=== PATIENT | male | born 1945 | race Caucasian/White ===

== ENCOUNTER 2020-07-24 17:18 | Inpatient (IN) | payer MEDICARE, OTHER ==
[2020-07-24] MEDS ORDERED: Amiodarone HCl 150 MG in Dextrose 5% in Water 100 ML IVPB SCH (18:00)
[2020-07-24] MEDS ORDERED: Amiodarone HCl 450 MG in Dextrose 5% in Water 250 ML IVPB SCH (18:00)
--- NOTE | 2020-07-24 18:23 | RAD ---
PORTABLE CHEST: 07/24/20 HISTORY: Abnormal rhythm noted on Holter monitor. Heart size and mediastinum are within normal limits. There is some type of an electronic device that overlies the aortic arch region. I am not certain the exact position of this on this single view. The lungs themselves are clear of any infiltrative process. IMPRESSION: Electronic device overlying the region of the aortic notch. I am not certain of the exact position of this on a single projection. POS: OFF
[2020-07-24 18:24] LABS: #Basophils 0.1 thou/uL (0.0-0.2); #Eosinphils 0.2 thou/uL (0.0-0.7); #Lymphocytes 1.8 thou/uL (1.20-3.40); #Monocytes 0.6 thou/uL (0.11-0.59); #Neutrophils 3.9 thou/uL (1.40-6.50); %Basophils 1.3 % (0.0-1.0); %Eosinophils 2.8 % (0.0-10.0); %Lymphocytes 27.6 % (21.0-51.0); %Monocytes 8.6 % (0.0-10.0); %Neutrophils 59.8 % (42.0-75.0); Hemoglobin 14.3 g/dL (14.0-18.0); Mean Corpuscular HGB CONC 34.7 g/dL (32.0-36.0); Mean Corpuscular Hemoglobin 33.2 pg (27.0-31.0); Mean Corpuscular Volume 95.7 fL (78.0-98.0); Platelet Count 242 thou/uL (130-400); RBC Distribution Width 11.9 % (11.5-14.5); White Blood Cell (WBC) Count 6.6 thou/uL (4.8-10.8)
--- NOTE | 2020-07-24 18:25 | PDOC.FPRHP ---
- History of Present Illness Chief Complaint: Abnormal heart rhythm History of Present Illness: Patient is a 75 yo M who presents to the ED 2/2 abnormal heart rhythm. Patient was called by cardiology-Dr. Landon-to come to ED after Holter monitor was concerning for Torsades or Aflutter with 2-1 block. Late this morning had an episode of lightheadedness and palpitations and had to lie down and it resolved within about 30min. These episodes happen approx 1x per month for last several years and are typically resolved within 30 minutes after lying down. They haven't been happening more frequently or lasting longer but went and had heart evaluated due to wanting to pursue knee surgery. At that time he had Holter mon itor placed. He denies chest pain or syncope. He had one episode of syncope "years ago" at home with a similar episode but has never had it again. Per Dr. Landon, patient will go for cath tomorrow. Sees music copyist for diabetes, no PCP. ED Course: Patient was started on amiodarone drip per Dr. Landon. QTc on EKG is 452. - Allergies/Adverse Reactions Allergies Allergy/AdvReac Type Severity Reaction Status Date / Time No Allergy Information Allergy Unverified 07/24/20 17:52 Available - History PMHx: Type 1 DM on insulin dx'ed at age 52- had identical twin brother diagnosed at age 8, HLD, hypothyroidism, neuropathy PSHx: Dupuytren's contracture surgery FHx: Twin brother with type 1 DM, brother of cancer Social: Drinks daily 2-3 rum and cokes 1-2 shots each. Former smoker 40yrs 1ppd, smokes occasionally. 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 denies: chest pain Gastrointestinal: denies: nausea, vomiting, abdominal pain Genitourinary: denies: dysuria, polyuria Skin: denies: rashes, lesions Musculoskeletal: denies: pain, swelling Neurological: denies: syncope, weakness Psychological: denies: anxiety, depression - Vital signs BP: 130/96, Pulse: 91, Resp: 18, Temp: 98.2 (Oral), Pain: 0, O2 sat: 97 on (Room Air), Time: 07/24/2020 17:19. Wt 102 kg - Physical Exam Constitutional: NAD, awake, alert and oriented, well developed HEENT: normocephalic and atraumatic, conjunctiva clear, no scleral icterus, grossly normal hearing, oropharynx clear Neck: supple, trachea midline Heart: RRR, no murmurs/rubs/gallops, pulses present Lungs: CTAB, no respiratory distress, good air movement, no rales/rhonchi, no wheezing Abdomen: soft, non-tender Musculoskeletal: normal structure, normal tone Neurological: no focal deficit Skin: no rash/lesions Heme/Lymphatic: no unusual bruising or bleeding, no purpura Psychiatric: normal mood and affect, good judgment and insight, intact recent and remote memory FMR H&P: Results - Labs Result Diagrams: 07/24/20 17:45 07/24/20 17:45 - EKG Interpretation EKG: QTc 452, NSR, no ST elevation - Radiology Interpretation Chest x-ray Status: image reviewed by me, report reviewed by me Additional comment: No acute intrathoracic findings, Holter monitor visible FMR H&P: A/P - Plan Atrial Flutter vs Torsades likely 2/2 Myocardial Ischemia - Now in NSR, QTc 452 - Has holter monitor on, plan for cath in am per Dr. Landon - Amiodarone gtt per protocol - continuous tele monitoring - NPO @ 0000 - Magnesium 1.7, will replete-goal of 2.0 - check phosphorus, LFT wnl, will check TSH for amiodarone gtt - Cardiology consulted, Drs. Zavala and Dipesh aware of patient Diabetes - Follows with endocrinology, has been told it's type 1 but was most recently told it is most likely T2DM, has insulin pump - Accuchecks ACHS Hypothyroidism - Restart home synthroid - TSH level Neuropathy - Restart home gabapentin Alcohol use -ASE protocol - thiamine, folate, multivitamin - Ativan PRN per ASE protocol-please notify MD if Ativan is given Diet: CC, NPO @ 0000 DVT ppx: SCD GI ppx: none Code: Full- mPOA-litigation attorney associate- Victor Hugo Heidtke [phone], friend Patrice Chadwick [phone] Dispo: Admit to tele inpatient, dc pending cardiology recommendations FMR H&P: Upper Level - Pertinent history Mr Christianson is a 75yo male with pmh of IDDM, hypothyroidism, HLD 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 Reports he has intermittent palpitations for a few years around once a month that resolves within 30min with rest. Today around noon felt palpitations and laid down. Denies chest pain, SOB. Received call at 4pm to come to ED as rhythm was seen through Holter monitor. Was having cardiac workup prior to knee surgery. PE: General: NAD CV: RRR, no murmur Pulm: CTA b/l Abdomen: Nontender Extremities: No edema A/P: Aflutter vs Torsades likely 2/2 to myocardial ischemia. -Caught on Holter monitor. EKG in ED NSR with normal/borderline QTc of 452. Trop/BNP neg. CXR wnl. Mg 1.7, will give Mg with goal >2. Sent by Dr Landon, will place formal cardiology consult. NPO at midnight for cath tomorrow. Rate and Rhythm controlled on Amiodarone. Admit to tele. Alcohol Use disorder -ASE protocol, Ativan PRN. Daily folate, thiamine, MV. IDDM with insulin pump - Plan Date/Time: 07/24/201820 I, Lisa Adams, have evaluated this patient and agree with findings/plan as outlined by investigator internal affairs resident. Pertinent changes/additions are listed here.
[2020-07-24 19:38] LABS: SARS-CoV-2 NAA Rapid Test Not Detected (NotDetected)
[2020-07-24 19:57] LABS: ALT (SGPT) 20 U/L (8-55); AST (SGOT) 26 U/L (5-34); Alkaline Phosphatase 56 U/L (40-110); Anion Gap 11 mmol/L (10-20); BUN (Urea Nitrogen) 21 mg/dL (8.4-25.7); Bilirubin, Total 0.7 mg/dL (0.2-1.2); Calc. Creatinine Clearance 0 mL/min (70-130); Calcium 8.7 mg/dL (7.8-10.44); Carbon Dioxide 27 mmol/L (23-31); Chloride 105 mmol/L (98-107); Globulin 2.9 g/dL (2.4-3.5); Glucose 191 mg/dL (83-110); Magnesium 1.7 mg/dL (1.6-2.6); Potassium 4.1 mmol/L (3.5-5.1); Protein, Total 6.9 g/dL (5.8-8.1); Sodium 139 mmol/L (136-145)
[2020-07-24] MEDS ORDERED: Acetaminophen 325 MG TAB PO PRN ×2 (21:00→21:03)
[2020-07-24] MEDS ORDERED: Ondansetron PF 4 MG/2 ML Vial IVP PRN (21:00)
[2020-07-24] MEDS ORDERED: Ondansetron ODT 4 MG TAB SL PRN (21:00)
[2020-07-24] MEDS ORDERED: Acetaminophen 650 MG Suppository PR PRN (21:03)
[2020-07-24] MEDS ORDERED: Calcium Carbonate 500 MG ChewTAB PO PRN (21:03)
[2020-07-24] MEDS ORDERED: Lorazepam 2 MG/ML VIAL SLOW IVP PRN (21:03)
[2020-07-24] MEDS ORDERED: Dextrose 50% Abboject 50 ML SYRINGE SLOW IVP PRN (21:03)
[2020-07-24] MEDS ORDERED: Dextrose 5% in Water 1,000 ML IV PRN (21:03)
[2020-07-24 21:23] LABS: Phosphorus 2.7 mg/dL (2.3-4.7)
[2020-07-24 21:27] VITALS: BMI 26.4
[2020-07-24] MEDS ORDERED: Magnesium Chloride 64 MG TAB PO SCH (21:30)
[2020-07-24] MEDS ORDERED: Enoxaparin Sodium 100 MG/ML SYRINGE SC SCH (21:45)
[2020-07-25 00:02] LABS: Hemoglobin A1c 7.6 % (4.0-6.0)
[2020-07-25] MEDS: Sodium Chloride 0.9% 1,000 ML IV SCH ×3 (00:33→20:50)
[2020-07-25] MEDS: Amiodarone 450 MG in Dextrose 5% in Water 250 ML IVPB SCH (01:51)
[2020-07-25] MEDS: Rosuvastatin 10 MG TAB PO SCH (04:40)
[2020-07-25] MEDS: Folic Acid 1 MG TAB PO SCH (04:41)
[2020-07-25] MEDS: Levothyroxine Sodium 25 MCG TAB PO SCH (04:41)
[2020-07-25] MEDS: Multivitamin W/ Minerals 1 TAB PO SCH (04:41)
[2020-07-25] MEDS: Thiamine 100 MG TAB PO SCH (04:41)
[2020-07-25] MEDS: Levothyroxine Sodium 112 MCG TAB PO SCH (04:42)
[2020-07-25] MEDS: Gabapentin 400 MG CAP PO SCH ×2 (04:42→20:48)
--- NOTE | 2020-07-25 07:24 | PDOC.FM ---
- Subjective Subjective: Pt had no CP, palp overnight Tele monitoring NSR rate 60's with PVC's Dr. sky to take pt to cath this am - Objective MAR Reviewed: Yes Vital Signs & Weight: Vital Signs (12 hours) Temp Pulse Resp BP Pulse Ox 07/25/20 03:47 98 F 65 18 163/76 H 96 07/24/20 20:47 98.1 F 83 18 163/89 H 97 Weight Weight 103.646 kg I&O: 07/24/20 07/25/20 07/26/20 06:59 06:59 06:59 Intake Total 893 Output Total 450 Balance 443 Result Diagrams: 07/24/20 17:45 07/24/20 17:45 Phys Exam - Physical Examination Constitutional: NAD HEENT: moist MMs, sclera anicteric Neck: no JVD, supple, full ROM Respiratory: no wheezing, no rales, no rhonchi, clear to auscultation bilateral Cardiovascular: RRR, no significant murmur, no rub Gastrointestinal: soft, non-tender, no distention, positive bowel sounds Musculoskeletal: no edema, pulses present Neurological: non-focal, normal sensation, moves all 4 limbs Lymphatic: no nodes Psychiatric: normal affect, A&O x 3 Skin: no rash, normal turgor, cap refill <2 seconds Dx/Plan (1) Atrial flutter, paroxysmal Code(s): I48.92 - UNSPECIFIED ATRIAL FLUTTER Status: Acute - Plan Plan: Atrial Flutter vs Torsades likely 2/2 Myocardial Ischemia - Now in NSR, QTc 452 - Has holter monitor on, plan for cath in am per Dr. Sky - Amiodarone gtt per protocol - continuous tele monitoring - NPO for cath. - Magnesium 1.7, will replete-goal of 2.0 - phosphorus2.7, LFT wnl, TSH 3.58 for amiodarone gtt - Cardiology consulted, Drs. Zavala and Dipesh. Dr. Watts, EP consulted. Dr. Sky took pt for CATH this AM, and Dr. Watts to see pt for EP study as well. 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 Caraballo I agree with the History, Examination, Assessment and Plan documented above with any addition or exceptions noted below - Patient just returned from cardiac cath; denies any complaints. Afebrile VSS. A/P: 1) Cardiac dysrhytmia - cath with mild CAD; EP consult for further evaluation 2) DM- continue home meds; monitor BG, 3) Hypothyroidism- continue home meds
[2020-07-25] MEDS ORDERED: Magnesium Sulfate 2 GM in Sodium Chloride 0.9% 100 ML IVPB SCH (07:30)
[2020-07-25] MEDS ORDERED: Magnesium 2 GM/50 ML 2 GM in Premix Bag 1 BAG IVPB SCH (07:30)
[2020-07-25] MEDS ORDERED: Fentanyl 100 MCG/2 ML VIAL ONE (08:29)
[2020-07-25] MEDS ORDERED: Midazolam HCl 2 mg/2 ml Vial ONE (08:29)
[2020-07-25] MEDS ORDERED: Magnesium Chloride 64 MG TAB PO SCH (09:00)
[2020-07-25] MEDS ORDERED: Non-Formulary Item 1 EACH (Levothyroxine Sodium [Synthroid] 137 MCG Tablet) PO SCH (09:00)
[2020-07-25] MEDS ORDERED: Aspirin 81 mg Enteric Coated Tablet PO SCH (09:00)
[2020-07-25] MEDS: Lisinopril 20 MG TAB PO SCH (10:03)
[2020-07-25] MEDS: Enoxaparin Sodium 100 MG/ML SYRINGE SC SCH ×2 (10:04→20:49)
[2020-07-25] MEDS ORDERED: Iopamidol 370 76% 50 ML VIAL FS ONE (13:04)
[2020-07-25] MEDS ORDERED: Iopamidol 370 76% 100 ML VIAL ONE (13:04)
--- NOTE | 2020-07-25 13:40 | CON ---
DATE OF CONSULTATION: 07/24/2020 REASON FOR CONSULTATION: Ventricular tachycardia. HISTORY OF PRESENT ILLNESS: Mr. Christianson is a very pleasant 75-year-old gentleman, who I recently saw and evaluated for the first time. His main complaint is palpitations. An EVR was placed. He was having wide-complex tachycardia with symptoms. He had associated lightheadedness and dizziness. Initially, this was felt to be atrial flutter, but further monitoring did suggest ventricular tachycardia. No chest pain, pressure noted. After reviewing the strips, it was recommended he proceed to the emergency room. PAST MEDICAL HISTORY: Diabetes mellitus, hyperlipidemia, hypothyroidism, neuropathy, varicose veins. HOME MEDICATIONS: Include: 1. NovoLog. 2. Synthroid. 3. Gabapentin. 4. Rosuvastatin. 5. Calcium. 6. Fish oil. 7. Aspirin. SOCIAL HISTORY: Positive caffeine use. Positive alcohol use. Intermittent tobacco use. REVIEW OF SYSTEMS: A 10-point review of systems is reviewed and is as above, negative. PHYSICAL EXAMINATION: VITAL SIGNS: Blood pressure 137/81, pulse 54, temperature 97.5. GENERAL: Patient is a pleasant male, who is in no acute distress. The patient appears his stated age. NEUROLOGIC: The patient is alert and oriented x3 with no focal neurologic deficits. HEENT: Sclerae without icterus. Mouth has moist mucous membranes with normal pallor. NECK: No JVD. Carotid upstroke brisk. No bruits bilaterally. LUNGS: Clear to auscultation with unlabored respirations. BACK: No scoliosis or kyphosis. CARDIAC: Regular rate and rhythm with normal S1 and S2. No S3 or S4 noted. No significant rubs, murmurs, thrills, or gallops noted throughout the precordium. PMI is not displaced. There is no parasternal heave. ABDOMEN: Soft, nontender, nondistended. No peritoneal signs present. No hepatosplenomegaly. No abnormal striae. EXTREMITIES: 2+ femoral and 2+ dorsalis pedis pulses. No cyanosis, clubbing, or edema. SKIN: No gross abnormalities. PERTINENT LABORATORY DATA: Hemoglobin 14.3, hematocrit 41.1. Creatinine 1.04. IMPRESSION: Nonsustained ventricular tachycardia, symptomatic. RECOMMENDATIONS: I have discussed the case with decided to recommend hospital admission based on his symptoms of ventricular tachycardia. . The patient will need coronary angiography plus PCI. I discussed the procedure in full detail with Mr. Christianson. Risks include, but not limited to the following: , stroke, NC, need for emergency surgery, loss of limb, bleeding, and infection, as well as a reaction to the dye causing kidney failure and needing long-term dialysis. I also discussed the risks of PCI to include all of the above including coronary dissection and perforation in addition to acute stent thrombosis and restenosis. All questions about the procedure were answered. Given the above, the patient agreed to proceed with coronary angiography and possible PCI. He gave consent. All questions were answered. Given the above, patient agreed to proceed above procedure. ADDENDUM: The patient underwent coronary angiography on 07/25/2020. He was found to have mild coronary artery disease. IMPRESSION: Likely tachycardia mediated VT with LVEF on recent angio of 35%. Recommend EP consultation, amiodarone therapy, and LifeVest. Job ID: [id number]
--- NOTE | 2020-07-25 14:44 | CON ---
DATE OF CONSULTATION: 07/25/2020 REFERRING HOUSE SERVANT: Rogers Landon MD REASON FOR CONSULTATION: Ventricular tachycardia. HISTORY OF PRESENT ILLNESS: Mr. Christianson is a pleasant 75-year-old white male with no prior cardiac history. He has a history of diabetes mellitus, on insulin. He has a several-month history of palpitations associated with lightheadedness and presyncope. Outpatient 30-day monitor by Dr. Landon showed episodes of atrial fibrillation, atypical atrial flutter, and ventricular tachycardia, which was sustained and symptomatic. Cardiac catheterization today showed noncritical coronary artery disease and ejection fraction 35%. He has no chest discomfort, dyspnea, syncope, or falls. PAST MEDICAL HISTORY: 1. Type 2 diabetes mellitus, on insulin. 2. Dyslipidemia. 3. Hypothyroidism. 4. Neuropathy. 5. Bilateral knee pain. PAST SURGICAL HISTORY: Dupuytren's contracture surgery, left hand. FAMILY HISTORY: Brother with diabetes. SOCIAL HISTORY: Retired. He lives in [place]. 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 REVIEW OF SYSTEMS: No melena, bright red blood per rectum, or hematemesis. No stroke, seizures, or infection. All others negative. PHYSICAL EXAMINATION: GENERAL: Alert and oriented x4, in no apparent distress. VITAL SIGNS: Blood pressure 130/96, pulse 91, respiratory rate 12, temperature 98.2, and 97% oxygen saturation on room air. HEENT: No lesions. Sclerae clear. SKIN: No lesions. CARDIOVASCULAR: Regular rate and rhythm. No murmurs, gallops, or rubs. LUNGS: Clear to auscultation bilaterally. Normal respiratory effort. EXTREMITIES: No cyanosis, clubbing, or edema. LABORATORY DATA: WBC 6.6, hemoglobin 14.3, hematocrit 41.1, and platelets 242. Sodium 139, potassium 4.1, BUN 21, creatinine 1.0, and glucose 191. IMPRESSION AND PLAN: 1. Sustained symptomatic ventricular tachycardia with presyncope. 2. Nonischemic cardiomyopathy with ejection fraction 35%. 3. Atypical atrial flutter. 4. Paroxysmal atrial fibrillation. 5. Diabetes mellitus, on insulin. RECOMMENDATIONS: 1. We have discussed the risks, benefits, and alternatives of dual-chamber ICD, including, but not limited to myocardial infarction, stroke, , vascular damage, renal failure, pneumothorax, need for chest tube placement, infection, need for device removal, and allergic reaction. He is agreeable. We will plan to proceed on Tuesday. We will treat him with IV amiodarone and Lovenox in the meantime. 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 He is relatively ambidextrous. 2. Start Eliquis 72 to 96 hours after ICD implantation. Job ID: [id number]
[2020-07-26] MEDS: Levothyroxine Sodium 112 MCG TAB PO SCH (05:33)
[2020-07-26] MEDS: Levothyroxine Sodium 25 MCG TAB PO SCH (05:33)
[2020-07-26] MEDS: Sodium Chloride 0.9% 1,000 ML IV SCH ×2 (05:34→15:32)
--- NOTE | 2020-07-26 06:40 | PDOC.FM ---
- Subjective Subjective: Pt is doing well today. We discussed his diagnosis, treatment in depth as did Dr. Maldonado. Pt understands and has no questions. He never knew he had HFrEF. His heart cath revealed mild disease. He denies fever, chills, N/V. Eat is tolerating PO intake and has BM's. - Objective Vital Signs & Weight: Vital Signs (12 hours) Temp Pulse Resp BP BP Pulse Ox 07/26/20 03:38 97.8 F 58 L 18 115/58 L 115/58 L 94 L 07/25/20 19:30 98.2 F 60 18 128/76 96 Weight Weight 103.646 kg I&O: 07/24/20 07/25/20 07/26/20 06:59 06:59 06:59 Intake Total 893 4079 Output Total 450 1050 Balance 443 3029 Result Diagrams: 07/24/20 17:45 07/26/20 07:30 EKG Reviewed by me: Yes (Tele: Sinus bradycardia) Phys Exam - Physical Examination Constitutional: NAD HEENT: PERRLA, moist MMs Neck: no JVD, full ROM Respiratory: no wheezing, clear to auscultation bilateral Cardiovascular: no significant murmur bradycardia, regular rhythm Gastrointestinal: soft, non-tender Musculoskeletal: no edema, pulses present Neurological: non-focal, normal sensation Psychiatric: normal affect, A&O x 3 Skin: no rash, normal turgor Dx/Plan - Plan Plan: Atrial Flutter vs Torsades vs Sustained V-Tach in the setting HFrEF - Now in NSR, QTc 452 - Has holter monitor on - Amiodarone gtt d/c and starting amiodarone 200 mg BID - continuous tele monitoring - phosphorus2.7, LFT wnl, TSH 3.58 for amiodarone gtt - Cardiology consulted, Drs. Zavala and Dipesh. Dr. Maldonado, EP consulted. - Cath - minimal disease - AICD on 07/28; hold lovenox after 07/27 dose and restart 72 hrs after procedure, will need hibiclens; Dr. Maldonado will not perform ablation at this time - Mg, BMP 07/26 pending HFrEF, 35% - start lisinopril 20 mg daily - continue statin therapy - will need beta holger at some point Diabetes - Follows with endocrinology, has been told it's type 1 but was most recently told it is most likely T2DM, has insulin pump - Accuchecks ACHS - needs accuchecks performed Hypothyroidism - Restart home synthroid - TSH level 3.58 Neuropathy - Restart home gabapentin Alcohol use - ASE protocol - thiamine, folate, multivitamin - Ativan PRN per ASE protocol-please notify MD if Ativan is given Diet: CC DVT ppx: SCD GI ppx: none Code: Full- mPOA-decker operator- Victor Hugo [place] [phone], friend Patrice Chadwick [phone] Dispo: Admit to tele inpatient, dc pending AICD placement - will likely be admitted until 07/29 Addendum - Attending - Attending Attestation Date/Time: 07/26/20 9309 I personally evaluated the patient and discussed the management with Dr. Lieberman. I agree with the History, Examination, Assessment and Plan documented above with any addition or exceptions noted below. Will defer to cards concerning TTE, GDT for HFrEF. Monitor sugars.
[2020-07-26] MEDS ORDERED: HumaLOG 300 UNITS/3 ML VIAL SC PRN (06:48)
--- NOTE | 2020-07-26 08:04 | PDOC.EP ---
- Subjective Date: 07/26/20 Time: 08:01 Interval History: No complaints - Objective Allergies/Adverse Reactions: Allergies Allergy/AdvReac Type Severity Reaction Status Date / Time pencillin Allergy Uncoded 07/24/20 21:34 Current Medications Acetaminophen (Acetaminophen 325 Mg Tab) 650 mg PO Q4H PRN PRN Reason: Headache/Fever/Mild Pain (1-3) Acetaminophen (Acetaminophen 650 Mg Suppository) 650 mg DE Q4H PRN PRN Reason: Headache/Fever/Mild Pain (1-3) Calcium Carbonate (Calcium Carbonate 500 Mg Chewtab) 1,000 mg PO Q4H PRN PRN Reason: Heartburn or Indigestion Dextrose/Water (Dextrose 50% Abboject 50 Ml Syringe) 25 gm SLOW IVP PRN PRN PRN Reason: Hypoglycemia Enoxaparin Sodium (Enoxaparin Sodium 100 Mg/Ml Syringe) 100 mg SC 0900,2100 [facility] Last Admin: 07/25/20 20:49 Dose: 100 mg Documented by: Folic Acid (Folic Acid 1 Mg Tab) 1 mg PO DAILY [facility] Last Admin: 07/25/20 04:41 Dose: 1 mg Documented by: Gabapentin (Gabapentin 400 Mg Cap) 1,200 mg PO BID [facility] Last Admin: 07/25/20 20:48 Dose: 1,200 mg Documented by: Glucagon (Glucagon 1 Mg/Ml Vial) 1 mg IM PRN PRN PRN Reason: Hypoglycemia Dextrose/Water (D5w) 1,000 mls @ 0 mls/hr IV .Q0M PRN PRN Reason: Hypoglycemia Sodium Chloride (Normal Saline 0.9%) 1,000 mls @ 100 mls/hr IV .Q10H [facility] Last Admin: 07/26/20 05:34 Dose: 1,000 mls Documented by: Amiodarone HCl 450 mg/ (Dextrose/Water) 259 mls @ 0 mls/hr IVPB INF [facility]; Protocol Last Admin: 07/25/20 01:51 Dose: 259 mls Documented by: Insulin Human Lispro (Humalog 300 Units/3 Ml Vial) 0 units SC .MILD SLIDING SCALE PRN PRN Reason: Mild Correctional Scale Iron/Minerals/Multivitamins (Multivitamin W/ Minerals 1 Tab) 1 tab PO DAILY [facility] Last Admin: 07/25/20 04:41 Dose: 1 tab Documented by: Levothyroxine Sodium (Levothyroxine Sodium 112 Mcg Tab) 112 mcg PO 0600 [facility] Last Admin: 07/26/20 05:33 Dose: 112 mcg Documented by: Levothyroxine Sodium (Levothyroxine Sodium 25 Mcg Tab) 25 mcg PO 0600 [facility] Last Admin: 07/26/20 05:33 Dose: 25 mcg Documented by: Lisinopril (Lisinopril 20 Mg Tab) 20 mg PO DAILY [facility] Last Admin: 07/25/20 10:03 Dose: 20 mg Documented by: Lorazepam (Lorazepam 2 Mg/Ml Vial) 1 mg SLOW IVP Q1H PRN PRN Reason: Alcohol Withdrawal Rosuvastatin Calcium (Rosuvastatin 10 Mg Tab) 10 mg PO DAILY [facility] Last Admin: 07/25/20 04:40 Dose: 10 mg Documented by: Sodium Chloride (Flush - Normal Saline 10 Ml Syringe) 10 ml IVF PRN PRN PRN Reason: Saline Flush Thiamine HCl (Thiamine 100 Mg Tab) 100 mg PO DAILY [facility] Last Admin: 07/25/20 04:41 Dose: 100 mg Documented by: Vital Signs & Weight: Vital Signs Temp Pulse Resp BP BP Pulse Ox 07/26/20 03:38 97.8 F 58 L 18 115/58 L 115/58 L 94 L Weight 228 lb 8 oz I/O: I/O 07/25/20 07/26/20 07/27/20 06:59 06:59 06:59 Intake Total 893 4079 Output Total 450 1050 Balance 443 3029 - Labs Result Diagrams: 07/24/20 17:45 07/24/20 17:45 - Assessment/Plan Assessment/Plan: Sustained, symptomatic ventricular tachycardia - None overnight Atypical atrial flutter Paroxysmal atrial fibrillation Chronic systolic heart failure due to nonischemic cardiomyopathy Recommend: Plan ICD on Tuesday. 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 Discontinue Lovenox after tomorrow morning dose. Change amiodarone to 200 mg PO BID today Start Eliqius 72 hours after ICD insertion. Hibiclens scrub Tuesday and Tuesday. No ECG electrodes right chest area. Discussed with Hospital team.
[2020-07-26] MEDS: Lisinopril 20 MG TAB PO SCH (08:16)
[2020-07-26] MEDS: Multivitamin W/ Minerals 1 TAB PO SCH (08:17)
[2020-07-26] MEDS: Folic Acid 1 MG TAB PO SCH (08:17)
[2020-07-26] MEDS: Gabapentin 400 MG CAP PO SCH ×2 (08:17→20:50)
[2020-07-26] MEDS: Thiamine 100 MG TAB PO SCH (08:18)
[2020-07-26] MEDS: Amiodarone 450 MG in Dextrose 5% in Water 250 ML IVPB SCH (08:18)
[2020-07-26] MEDS: Enoxaparin Sodium 100 MG/ML SYRINGE SC SCH ×2 (08:18→20:50)
[2020-07-26] MEDS: Rosuvastatin 10 MG TAB PO SCH (08:18)
[2020-07-26 08:19] LABS: Anion Gap 12 mmol/L (10-20); BUN (Urea Nitrogen) 11 mg/dL (8.4-25.7); Calc. Creatinine Clearance 118 mL/min (70-130); Calcium 8.4 mg/dL (7.8-10.44); Carbon Dioxide 25 mmol/L (23-31); Chloride 108 mmol/L (98-107); Glucose 88 mg/dL (83-110); Magnesium 1.8 mg/dL (1.6-2.6); Potassium 3.9 mmol/L (3.5-5.1); Sodium 141 mmol/L (136-145)
[2020-07-26] MEDS ORDERED: Amiodarone 200 MG TAB PO SCH (14:00)
[2020-07-26] MEDS: Amiodarone 200 MG TAB PO SCH (20:50)
[2020-07-27] MEDS: Sodium Chloride 0.9% 1,000 ML IV SCH (01:00)
[2020-07-27] MEDS: Levothyroxine Sodium 112 MCG TAB PO SCH (05:19)
[2020-07-27] MEDS: Levothyroxine Sodium 25 MCG TAB PO SCH (05:19)
--- NOTE | 2020-07-27 05:43 | PDOC.FM ---
- Subjective Subjective: Pt is doing well today. He has no concerns. He is pending AICD placement tomorrow. Denies chest pain, syncope. He did have PAT during my interview and remained asymptomatic. He has an insulin pump. Yesterday he administered about 17 U of rapid acting insulin. - Objective Vital Signs & Weight: Vital Signs (12 hours) Temp Pulse Resp BP Pulse Ox 07/27/20 04:00 98.4 F 60 16 153/82 H 92 L 07/27/20 00:00 98.1 F 60 18 140/78 96 07/26/20 19:10 98.4 F 58 L 16 136/82 95 Weight Weight 103.646 kg I&O: 07/25/20 07/26/20 07/27/20 06:59 06:59 06:59 Intake Total 893 4079 3375 Output Total 450 1050 2300 Balance 443 3029 1075 Result Diagrams: 07/24/20 17:45 07/26/20 07:30 EKG Reviewed by me: Yes (NSR with an episode of PAT) Phys Exam - Physical Examination Constitutional: NAD HEENT: PERRLA, moist MMs Neck: no JVD, full ROM Respiratory: no wheezing, clear to auscultation bilateral Cardiovascular: RRR, no significant murmur Gastrointestinal: soft, positive bowel sounds Musculoskeletal: no edema, pulses present Neurological: non-focal, normal sensation Psychiatric: normal affect, A&O x 3 Skin: no rash, cap refill <2 seconds Dx/Plan - Plan Plan: Atrial Flutter vs Torsades vs Sustained V-Tach in the setting HFrEF - Now in NSR, QTc 452 - Has holter monitor on - Amiodarone gtt d/c and starting amiodarone 200 mg BID - continuous tele monitoring - phosphorus2.7, LFT wnl, TSH 3.58 for amiodarone gtt - Cardiology consulted, Drs. Zavala and Dipesh. Dr. Maldonado, EP consulted. - Cath - minimal disease - AICD on 07/28; hold lovenox after 07/27 dose and restart 72 hrs after procedure, will need hibiclens; Dr. Maldonado will not perform ablation at this time - Mg, BMP 07/26 pending HFrEF, 35% - start lisinopril 20 mg daily - continue statin therapy - will need beta holger at some point Diabetes - Follows with endocrinology, has been told it's type 1 but was most recently told it is most likely T2DM, has insulin pump - Required 16 U of rapid acting inuslin yesterday. This is only form of insulin, DM medication. Will discuss decreasing dose by 1/2 in the form of long acting insuling tomorrow as he will be NPO at midnight for procedure. 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 Lieberman. I agree with the History, Examination, Assessment and Plan documented above with any addition or exceptions noted below.
--- NOTE | 2020-07-27 08:36 | PDOC.EP ---
- Subjective Date: 07/27/20 Time: 08:34 Interval History: No complaints - Objective Allergies/Adverse Reactions: Allergies Allergy/AdvReac Type Severity Reaction Status Date / Time pencillin Allergy Uncoded 07/24/20 21:34 Current Medications Acetaminophen (Acetaminophen 325 Mg Tab) 650 mg PO Q4H PRN PRN Reason: Headache/Fever/Mild Pain (1-3) Acetaminophen (Acetaminophen 650 Mg Suppository) 650 mg SD Q4H PRN PRN Reason: Headache/Fever/Mild Pain (1-3) Amiodarone HCl (Amiodarone 200 Mg Tab) 200 mg PO BID [facility] Last Admin: 07/26/20 20:50 Dose: 200 mg Documented by: Calcium Carbonate (Calcium Carbonate 500 Mg Chewtab) 1,000 mg PO Q4H PRN PRN Reason: Heartburn or Indigestion Chlorhexidine Gluconate (Chlorhexidine Gluconate 15 Ml Udcup) 15 ml SSP QPM ONE Stop: 07/27/20 21:01 Chlorhexidine Gluconate (Chlorhexidine Gluconate 15 Ml Udcup) 15 ml SSP NOW [facility] Stop: 07/28/20 12:00 Dextrose/Water (Dextrose 50% Abboject 50 Ml Syringe) 25 gm SLOW IVP PRN PRN PRN Reason: Hypoglycemia Enoxaparin Sodium (Enoxaparin Sodium 100 Mg/Ml Syringe) 100 mg SC 0900,2100 [facility] Last Admin: 07/26/20 20:50 Dose: 100 mg Documented by: Folic Acid (Folic Acid 1 Mg Tab) 1 mg PO DAILY [facility] Last Admin: 07/26/20 08:17 Dose: 1 mg Documented by: Gabapentin (Gabapentin 400 Mg Cap) 1,200 mg PO BID [facility] Last Admin: 07/26/20 20:50 Dose: 1,200 mg Documented by: Glucagon (Glucagon 1 Mg/Ml Vial) 1 mg IM PRN PRN PRN Reason: Hypoglycemia Dextrose/Water (D5w) 1,000 mls @ 0 mls/hr IV .Q0M PRN PRN Reason: Hypoglycemia Insulin Human Lispro (Humalog 300 Units/3 Ml Vial) 0 units SC .MILD SLIDING SCALE PRN PRN Reason: Mild Correctional Scale Iron/Minerals/Multivitamins (Multivitamin W/ Minerals 1 Tab) 1 tab PO DAILY [facility] Last Admin: 07/26/20 08:17 Dose: 1 tab Documented by: Levothyroxine Sodium (Levothyroxine Sodium 112 Mcg Tab) 112 mcg PO 0600 [facility] Last Admin: 07/27/20 05:19 Dose: 112 mcg Documented by: Levothyroxine Sodium (Levothyroxine Sodium 25 Mcg Tab) 25 mcg PO 0600 [facility] Last Admin: 07/27/20 05:19 Dose: 25 mcg Documented by: Lisinopril (Lisinopril 20 Mg Tab) 20 mg PO DAILY [facility] Last Admin: 07/26/20 08:16 Dose: 20 mg Documented by: Lorazepam (Lorazepam 2 Mg/Ml Vial) 1 mg SLOW IVP Q1H PRN PRN Reason: Alcohol Withdrawal Rosuvastatin Calcium (Rosuvastatin 10 Mg Tab) 10 mg PO DAILY [facility] Last Admin: 07/26/20 08:18 Dose: 10 mg Documented by: Sodium Chloride (Flush - Normal Saline 10 Ml Syringe) 10 ml IVF PRN PRN PRN Reason: Saline Flush Last Admin: 07/26/20 20:51 Dose: 10 ml Documented by: Thiamine HCl (Thiamine 100 Mg Tab) 100 mg PO DAILY [facility] Last Admin: 07/26/20 08:18 Dose: 100 mg Documented by: Vital Signs & Weight: Vital Signs Temp Pulse Resp BP Pulse Ox 07/27/20 04:00 98.4 F 60 16 153/82 H 92 L 07/27/20 00:00 98.1 F 60 18 140/78 96 Weight 228 lb 8 oz I/O: I/O 07/26/20 07/27/20 07/28/20 06:59 06:59 06:59 Intake Total 4079 3375 Output Total 1050 2300 Balance 3029 1075 - Labs Result Diagrams: 07/24/20 17:45 07/26/20 07:30 - Assessment/Plan Assessment/Plan: Sustained ventricular tachycardia with presyncope Atypical atrial flutter Paroxysmal atrial fibrillation Chronic systolic heart failure due to nonischemic CMP Nonsustained atrial tachycardia overnight Recommend: ICD right sided tomorrow. Risks, benefits and alternatives discussed. Continue amiodarone 200 mg BID
[2020-07-27] MEDS: Thiamine 100 MG TAB PO SCH (09:10)
[2020-07-27] MEDS: Gabapentin 400 MG CAP PO SCH ×2 (09:10→20:31)
[2020-07-27] MEDS: Folic Acid 1 MG TAB PO SCH (09:11)
[2020-07-27] MEDS: Amiodarone 200 MG TAB PO SCH ×2 (09:12→20:31)
[2020-07-27] MEDS: Rosuvastatin 10 MG TAB PO SCH (09:13)
[2020-07-27] MEDS: Multivitamin W/ Minerals 1 TAB PO SCH (09:13)
[2020-07-27] MEDS: Lisinopril 20 MG TAB PO SCH (09:13)
[2020-07-27] MEDS: Enoxaparin Sodium 100 MG/ML SYRINGE SC SCH (09:13)
[2020-07-27] MEDS: Carvedilol 3.125 MG TAB PO SCH (17:12)
[2020-07-27] MEDS ORDERED: Chlorhexidine Gluconate 15 ML UDCUP SSP ONE (21:00)
[2020-07-28] MEDS: Levothyroxine Sodium 112 MCG TAB PO SCH (05:35)
[2020-07-28] MEDS: Levothyroxine Sodium 25 MCG TAB PO SCH (05:35)
--- NOTE | 2020-07-28 06:53 | PDOC.FM ---
- Subjective Subjective: Pt has had insulin held since last night. He slept well and is awaiting his surgery this afternoon. - Objective MAR Reviewed: Yes Vital Signs & Weight: Vital Signs (12 hours) Temp Pulse Resp BP BP Pulse Ox 07/28/20 03:50 98.2 F 65 16 115/57 L 115/57 L 07/27/20 20:00 98.3 F 58 L 18 120/75 120/75 98 Weight Weight 100.896 kg I&O: 07/26/20 07/27/20 07/28/20 06:59 06:59 06:59 Intake Total 4079 3375 1100 Output Total 1050 2300 600 Balance 3029 1075 500 Result Diagrams: 07/24/20 17:45 07/26/20 07:30 EKG Reviewed by me: Yes (50-90s with a few PVCs, run of PAT yesterday) Phys Exam - Physical Examination Constitutional: NAD HEENT: moist MMs, sclera anicteric Neck: supple Respiratory: no wheezing, no rales, no rhonchi, clear to auscultation bilateral Cardiovascular: RRR, no significant murmur Gastrointestinal: soft, non-tender, positive bowel sounds Musculoskeletal: no edema, pulses present Neurological: moves all 4 limbs Lymphatic: no nodes Psychiatric: normal affect Skin: no rash, normal turgor Dx/Plan (1) Diabetes mellitus Code(s): E11.9 - TYPE 2 DIABETES MELLITUS WITHOUT COMPLICATIONS Status: Acute (2) Neuropathy Code(s): G62.9 - POLYNEUROPATHY, UNSPECIFIED Status: Acute (3) Hypothyroidism Code(s): E03.9 - HYPOTHYROIDISM, UNSPECIFIED Status: Acute (4) HLD (hyperlipidemia) Code(s): E78.5 - HYPERLIPIDEMIA, UNSPECIFIED Status: Acute (5) Atrial flutter, paroxysmal Code(s): I48.92 - UNSPECIFIED ATRIAL FLUTTER Status: Acute - Plan Plan: Patient is a 75 yo M who presents to the ED 2/2 abnormal heart rhythm after Holter monitor showed concerns for Torsades or Aflutter with 2-1 block. 1. Atrial Flutter vs Torsades vs Sustained V-Tach in the setting HFrEF - Now in NSR, QTc 452 - Has holter monitor on - Amiodarone gtt d/c and starting amiodarone 200 mg BID - continuous tele monitoring - phosphorus 2.7, LFT wnl, TSH 3.58 for amiodarone gtt - Cardiology consulted, Drs. Zavala and Dipesh. Dr. Maldonado, EP consulted. - Cath - minimal disease - AICD on 07/28; hold lovenox after 07/27 dose and restart 72 hrs after procedure. * Dr. Maldonado will not perform ablation at this time. 2. HFrEF, 35% Lisinopril 20 mg daily -Going for AICD 07/28 - continue statin therapy - will need beta holger at some point 3. Diabetes - Follows with endocrinology, has been told it's type 1 but was most recently told it is most likely T2DM, has insulin pump - Required 16 U of rapid acting inuslin yesterday. This is only form of insulin, DM medication. Will discuss decreasing dose by 1/2 in the form of long acting insuling tomorrow as he will be NPO at midnight for procedure. - Accuchecks 4. Hypothyroidism - Restart home synthroid - TSH level 3.58 5. Neuropathy - Restart home gabapentin 6. Alcohol use - ASE protocol - thiamine, folate, multivitamin - Ativan PRN per ASE protocol-please notify MD if Ativan is given Diet: CC DVT ppx: SCD GI ppx: none Code: Full- mPOA-truss assembler- Victor Hugo Castillotheo [phone], friend Patrice Chadwick [phone] Dispo: Tele inpt. LOS>48H. D/c pending AICD placement - will likely be admitted until 07/29 Addendum - Attending - Attending Attestation Date/Time: 07/28/20 1034 I personally evaluated the patient and discussed the management with Dr. Caraballo. I agree with the History, Examination, Assessment and Plan documented above with any addition or exceptions noted below.
[2020-07-28] MEDS ORDERED: Chlorhexidine Gluconate 15 ML UDCUP SSP SCH (09:00)
[2020-07-28] MEDS: Carvedilol 3.125 MG TAB PO SCH ×2 (09:02→18:27)
[2020-07-28] MEDS: Gabapentin 400 MG CAP PO SCH ×2 (09:02→20:45)
[2020-07-28] MEDS: Lisinopril 20 MG TAB PO SCH (09:03)
[2020-07-28] MEDS: Thiamine 100 MG TAB PO SCH (09:03)
[2020-07-28] MEDS: Multivitamin W/ Minerals 1 TAB PO SCH (09:03)
[2020-07-28] MEDS: Amiodarone 200 MG TAB PO SCH ×2 (09:03→20:45)
[2020-07-28] MEDS: Rosuvastatin 10 MG TAB PO SCH (09:03)
[2020-07-28] MEDS: Folic Acid 1 MG TAB PO SCH (09:03)
--- NOTE | 2020-07-28 10:10 | PRG ---
DATE OF SERVICE: 07/28/2020 SUBJECTIVE: Mr. Christianson is doing well. No current complaints. He is scheduled for ICD today. OBJECTIVE: VITAL SIGNS: Blood pressure 125/74, pulse 65, temperature 97.4. LUNGS: Clear to auscultation. HEART: Regular rate and rhythm. ABDOMEN: Soft, nontender, nondistended. EXTREMITIES: No edema. PERTINENT LABORATORY DATA: Hemoglobin 14.3, hematocrit 41.1, platelet count of 242. IMPRESSION: 1. Nonsustained VT. 2. etiology, cannot exclude alcohol as the source versus tachy-rob. RECOMMENDATIONS: ICD would place this afternoon by Dr. Zac Maldonado. Further recommendation of medical therapy for suppression of VT will be at the discretion of Dr. Zac Maldonado. I did ask Mr. Christianson to refrain from all alcohol. He states he drinks 2 to 3 alcoholic beverages per day. Early enough during the day, okay from my standpoint for Mr. Christianson to go home on if okay with Dr. Zac Maldonado with outpatient followup. We will defer any further recommendations on the timing of knee surgery to Dr. Zac Maldonado will be based on his most recent ICD. Job ID: [id number]
[2020-07-28] MEDS ORDERED: Lidocaine 1% PF 5 ML VIAL ONE (11:24)
[2020-07-28] MEDS ORDERED: Dexamethasone 20 MG/5 ML VIAL ONE (11:24)
[2020-07-28] MEDS ORDERED: PHENYLEPHRINE-NS 100 MCG/ML 10 ML SYRINGE ONE (11:24)
[2020-07-28] MEDS ORDERED: Ondansetron PF 4 MG/2 ML Vial ONE (11:24)
[2020-07-28] MEDS ORDERED: PROPOFOL 200 MG/20 ML VIAL ONE (11:24)
[2020-07-28] MEDS ORDERED: CEFAZOLIN 1 GM VIAL ONE (11:57)
[2020-07-28] MEDS ORDERED: Gentamicin 80 MG/2 ML VIAL ONE (11:57)
[2020-07-28] MEDS ORDERED: Iopamidol 370 76% 50 ML VIAL FS ONE (12:05)
[2020-07-28] MEDS ORDERED: Vancomycin 1.5 GRAM/300 ML BAG 1.5 GM in Premix Bag 1 BAG IVPB SCH (12:30)
[2020-07-28] MEDS ORDERED: Fentanyl 100 MCG/2 ML VIAL ONE (14:28)
[2020-07-28] MEDS ORDERED: Propofol 1,000 MG/100 ML VIAL IV ONE (14:34)
[2020-07-28] MEDS ORDERED: Levofloxacin 500 mg/D5W 100 ml Premix Bag ONE (14:45)
--- NOTE | 2020-07-28 16:45 | RAD ---
Chest AP view INDICATION: Status post placement of defibrillator COMPARISON: None FINDINGS: Lungs: The lungs are clear Cardiac silhouette: The cardiomediastinal silhouette appears within normal limits. Pulmonary vasculature: Normal Pleural spaces: No pleural effusion or pneumothorax is demonstrated. Upper abdomen: No abnormality seen. Osseous structures: No acute osseous abnormality. Additional findings: There is a dual-lead AICD overlying the right chest wall. No pneumothorax. IMPRESSION: New right dual lead AICD. No pneumothorax. No acute cardiopulmonary abnormality.
[2020-07-29] MEDS: Levothyroxine Sodium 25 MCG TAB PO SCH (05:36)
[2020-07-29] MEDS: Levothyroxine Sodium 112 MCG TAB PO SCH (05:36)
--- NOTE | 2020-07-29 07:03 | PDOC.FM ---
- Subjective Subjective: Pt is feeling well today. He is eating and has restarted his pump. He says he slept well after the procedure, but he did not sleep well last night. He is ready to go home this morning. - Objective MAR Reviewed: Yes Vital Signs & Weight: Vital Signs (12 hours) Temp Pulse Resp BP Pulse Ox 07/29/20 04:00 97.9 F 60 14 112/64 96 07/28/20 20:00 97.8 F 67 18 136/66 Weight Weight 100.244 kg I&O: 07/28/20 07/29/20 07/30/20 06:59 06:59 06:59 Intake Total 1100 330 Output Total 600 1050 Balance 500 -720 Result Diagrams: 07/24/20 17:45 07/26/20 07:30 EKG Reviewed by me: Yes (Apaced, V sensed in 60s) Phys Exam - Physical Examination Constitutional: NAD HEENT: moist MMs, sclera anicteric Neck: supple Respiratory: no wheezing, no rales, no rhonchi, clear to auscultation bilateral Cardiovascular: RRR Gastrointestinal: soft, non-tender, positive bowel sounds Musculoskeletal: pulses present Neurological: moves all 4 limbs Psychiatric: normal affect Skin: no rash Dx/Plan (1) Diabetes mellitus Code(s): E11.9 - TYPE 2 DIABETES MELLITUS WITHOUT COMPLICATIONS Status: Acute (2) Neuropathy Code(s): G62.9 - POLYNEUROPATHY, UNSPECIFIED Status: Acute (3) Hypothyroidism Code(s): E03.9 - HYPOTHYROIDISM, UNSPECIFIED Status: Acute (4) HLD (hyperlipidemia) Code(s): E78.5 - HYPERLIPIDEMIA, UNSPECIFIED Status: Acute (5) Atrial flutter, paroxysmal Code(s): I48.92 - UNSPECIFIED ATRIAL FLUTTER Status: Acute - Plan Plan: Patient is a 75 yo M who presents to the ED 2/2 abnormal heart rhythm after Holter monitor showed concerns for Torsades or Aflutter with 2-1 block. 1. Atrial Flutter vs Torsades vs Sustained V-Tach in the setting HFrEF - Now in NSR, QTc 452 - Has holter monitor on - Amiodarone gtt d/c and starting amiodarone 200 mg BID - continuous tele monitoring - phosphorus 2.7, LFT wnl, TSH 3.58 for amiodarone gtt - Cardiology consulted, Drs. Zavala and Dipesh. Dr. Maldonado, EP consulted. - Cath - minimal disease - AICD on 07/28; hold lovenox after 07/27 dose and restart 72 hrs after procedure. * Dr. Maldonado will not perform ablation at this time. 2. HFrEF, 35% Lisinopril 20 mg daily -Going for AICD 07/28 - continue statin therapy - will need beta holger at some point 3. Diabetes - Follows with endocrinology, has been told it's type 1 but was most recently told it is most likely T2DM, has insulin pump - Required 16 U of rapid acting inuslin yesterday. This is only form of insulin, DM medication. Will discuss decreasing dose by 1/2 in the form of long acting insuling tomorrow as he will be NPO at midnight for procedure. - Accuchecks 4. Hypothyroidism - Restart home synthroid - TSH level 3.58 5. Neuropathy - Restart home gabapentin 6. Alcohol use - ASE protocol - thiamine, folate, multivitamin - Ativan PRN per ASE protocol-please notify MD if Ativan is given Diet: CC DVT ppx: SCD GI ppx: none Code: Full- mPOA-personal injury attorney- Victor Hugo [place] [phone], friend Patrice Chadwick [phone] Dispo: Tele inpt. LOS>48H. Will follow up with EP to make sure pt is ok to d/c from their standpoint and consider d/c Addendum - Attending - Attending Attestation Date/Time: 07/29/20 0053 I personally evaluated the patient and discussed the management with Dr. Caraballo. I agree with the History, Examination, Assessment and Plan documented above with any addition or exceptions noted below. Patient doing well s/p AICD yesterday. He is stable for discharge per Cardiology and EP.
--- NOTE | 2020-07-29 07:20 | EKG ---
Test Reason : POST DEFIB Blood Pressure : / mmHG Vent. Rate : 060 BPM Atrial Rate : 060 BPM P-R Int : 150 ms QRS Dur : 088 ms QT Int : 502 ms P-R-T Axes : 052 -29 007 degrees QTc Int : 502 ms Atrial paced rhythm Prolonged QT Abnormal ECG When compared with ECG of 24-JUL-2020 17:29, (Unconfirmed) Vent. rate has decreased BY 37 BPM QT has lengthened Confirmed by DR. Hima MOE ([id number]) on 07/29/2020 7:20:04 AM Referred By: FLOYD Confirmed By:DR. Hima MOE
[2020-07-29] MEDS: Gabapentin 400 MG CAP PO SCH (08:36)
[2020-07-29] MEDS: Carvedilol 3.125 MG TAB PO SCH (08:37)
[2020-07-29] MEDS: Thiamine 100 MG TAB PO SCH (08:37)
[2020-07-29] MEDS: Multivitamin W/ Minerals 1 TAB PO SCH (08:37)
[2020-07-29] MEDS: Rosuvastatin 10 MG TAB PO SCH (08:37)
[2020-07-29] MEDS: Amiodarone 200 MG TAB PO SCH (08:37)
[2020-07-29] MEDS: Folic Acid 1 MG TAB PO SCH (08:37)
[2020-07-29] MEDS: Lisinopril 20 MG TAB PO SCH (08:37)
--- NOTE | 2020-07-29 10:01 | PDOC.EP ---
- Subjective Date: 07/29/20 Time: 09:58 Interval History: No complaints. - Objective Allergies/Adverse Reactions: Allergies Allergy/AdvReac Type Severity Reaction Status Date / Time pencillin Allergy Uncoded 07/24/20 21:34 Current Medications Acetaminophen (Acetaminophen 325 Mg Tab) 650 mg PO Q4H PRN PRN Reason: Headache/Fever/Mild Pain (1-3) Acetaminophen (Acetaminophen 650 Mg Suppository) 650 mg IA Q4H PRN PRN Reason: Headache/Fever/Mild Pain (1-3) Amiodarone HCl (Amiodarone 200 Mg Tab) 200 mg PO BID [facility] Last Admin: 07/29/20 08:37 Dose: 200 mg Documented by: Calcium Carbonate (Calcium Carbonate 500 Mg Chewtab) 1,000 mg PO Q4H PRN PRN Reason: Heartburn or Indigestion Carvedilol (Carvedilol 3.125 Mg Tab) 3.125 mg PO BID[facility] Last Admin: 07/29/20 08:37 Dose: 3.125 mg Documented by: Dextrose/Water (Dextrose 50% Abboject 50 Ml Syringe) 25 gm SLOW IVP PRN PRN PRN Reason: Hypoglycemia Folic Acid (Folic Acid 1 Mg Tab) 1 mg PO DAILY [facility] Last Admin: 07/29/20 08:37 Dose: 1 mg Documented by: Gabapentin (Gabapentin 400 Mg Cap) 1,200 mg PO BID [facility] Last Admin: 07/29/20 08:36 Dose: 1,200 mg Documented by: Glucagon (Glucagon 1 Mg/Ml Vial) 1 mg IM PRN PRN PRN Reason: Hypoglycemia Dextrose/Water (D5w) 1,000 mls @ 0 mls/hr IV .Q0M PRN PRN Reason: Hypoglycemia Insulin Human Lispro (Humalog 300 Units/3 Ml Vial) 0 units SC .MILD SLIDING SCALE PRN PRN Reason: Mild Correctional Scale Iron/Minerals/Multivitamins (Multivitamin W/ Minerals 1 Tab) 1 tab PO DAILY [facility] Last Admin: 07/29/20 08:37 Dose: 1 tab Documented by: Levothyroxine Sodium (Levothyroxine Sodium 112 Mcg Tab) 112 mcg PO 0600 [facility] Last Admin: 07/29/20 05:36 Dose: 112 mcg Documented by: Levothyroxine Sodium (Levothyroxine Sodium 25 Mcg Tab) 25 mcg PO 0600 [facility] Last Admin: 07/29/20 05:36 Dose: 25 mcg Documented by: Lisinopril (Lisinopril 20 Mg Tab) 20 mg PO DAILY [facility] Last Admin: 07/29/20 08:37 Dose: 20 mg Documented by: Lorazepam (Lorazepam 2 Mg/Ml Vial) 1 mg SLOW IVP Q1H PRN PRN Reason: Alcohol Withdrawal Rosuvastatin Calcium (Rosuvastatin 10 Mg Tab) 10 mg PO DAILY [facility] Last Admin: 07/29/20 08:37 Dose: 10 mg Documented by: Sodium Chloride (Flush - Normal Saline 10 Ml Syringe) 10 ml IVF PRN PRN PRN Reason: Saline Flush Last Admin: 07/26/20 20:51 Dose: 10 ml Documented by: Thiamine HCl (Thiamine 100 Mg Tab) 100 mg PO DAILY [facility] Last Admin: 07/29/20 08:37 Dose: 100 mg Documented by: Vital Signs & Weight: Vital Signs Temp Pulse Resp BP Pulse Ox 07/29/20 07:35 97.6 F 69 18 122/71 95 07/29/20 04:00 97.9 F 60 14 112/64 96 Weight 221 lb I/O: I/O 07/28/20 07/29/20 07/30/20 06:59 06:59 06:59 Intake Total 1100 330 Output Total 600 1050 Balance 500 -720 - Labs Result Diagrams: 07/24/20 17:45 07/26/20 07:30 - Assessment/Plan Assessment/Plan: Sustained ventricular tachycardia - None since admission ICD - No complications Atypical atrial flutter Paroxysmal atrial fibrillation Recommend: Discontinue aspirin. Start Eliquis 5 mg BID 08/01/20 Amiodarone 200 mg BID for one month, then 200 mg daily Follow up with [facility] in 2 weeks. We will arrange. Follow up with Dr. Landon in about a month Okay to discharge from EP standpoint.
[2020-07-29 11:14] VITALS: TEMP 97.5
[2020-07-29 11:25] VITALS: BP 129/71
[2020-07-29 14:14] LABS: Folate,Hemolysate >620.0 ng/mL (Not Estab.); RBC Folate Test Component Greater than 1632 ng/mL (>498)
--- NOTE | 2020-07-30 10:39 | DIS ---
DATE OF ADMISSION: 07/24/2020 DATE OF DISCHARGE: 07/29/2020 CONSULTS: * Cardiology: The patient had nonsustained ventricular tachycardia. Recommend medical therapy for suppression of ventricular tachycardia per Dr. Zac Maldonado, EP recommendation. Advised to refrain from alcohol. Will follow up outpatient in 1 month. * Electrophysiology, Dr. Maldonado: The patient has sustained ventricular tachycardia, AICD placed on 07/28/2020, atypical aflutter and paroxysmal atrial fibrillation. Recommend the patient discontinue aspirin, start Eliquis 5 mg b.i.d. on 08/01/2020, amiodarone 200 mg b.i.d. for 1 month, then 200 mg daily. Followup with [facility] in [address] Landon in 1 month. PROCEDURES: 1. Chest x-ray on 07/24/2020 shows electronic device over aortic notch. 2. Catheterization on 07/25/2020 showed mild coronary artery disease. EF of 35%. 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 3. Chest x-ray on 07/28/2020 showed dual right lead AICD, no pneumo, no acute findings. 4. AICD placed on 07/28/2020. PRIMARY DIAGNOSES: 1. Aflutter or nonsustained ventricular tachycardia in the setting of heart failure, reduced ejection fraction. 2. Heart failure reduced ejection fraction, 35%. SECONDARY DIAGNOSES: 1. Diabetes mellitus hypothyroidism 2. Neuropathy 3. Alcohol abuse. MEDICATIONS: Home medications: 1. Continue fish oil. 2. Gabapentin 1200 mg p.o. b.i.d. 3. Glucosamine chondroitin 1 tab b.i.d. 4. Home NovoLog per pump. 5. Levothyroxine 137 mcg daily. 6. Crestor 10 mg daily. Discontinue: Aspirin 81 mg. New medications: 1. Lisinopril 20 mg p.o. daily. 2. Amiodarone 200 mg p.o. b.i.d. for 30 days, then 200 mg daily. 3. Eliquis 5 mg p.o. b.i.d. that should begin on 08/01. 4. Carvedilol 3.125 mg p.o. b.i.d. HISTORY OF PRESENT ILLNESS: Patient is a 75-year-old male who presents in the ED secondary to abnormal heart rhythm. The patient was called by Cardiology Dr. Landon to come to the ED after Holter monitor was concerning for torsades for aflutter with 2:1 block, late this morning, patient had an episode of lightheadedness and palpitations and had to lie down and it resolved within 30 minutes. This episode has happened approximately 1 time per month for the last several years and has typically resolved within 30 minutes after lying down. They have not been happening more frequently and lasting longer, but went and had heart evaluated due to wanting to pursue a knee surgery at that time, had a Holter monitor placed. He denies chest pain or syncope. He had 1 episode of syncope years ago at home with a similar episode, but has never had it again. Per Dr. Landon, patient will go for catheterization tomorrow, sees his senior quality control inspector for diabetes, no PCP. 1. Nonsustained ventricular tachycardia. The patient is now in normal sinus rhythm, has AICD placed. * Amiodarone b.i.d. Monitor on tele. * Catheterization performed as noted above. * AICD placed on 07/28. 2. Heart failure, reduced ejection fraction 35%. * Lisinopril and carvedilol started. * Continue statin. 3. Diabetes. The patient used home insulin pump, was having Accu-Cheks and sliding scale insulin while here. 4. Hypothyroidism. TSH at 3.5, continue home Synthroid. 5. Neuropathy. Restart home gabapentin. 6. Alcohol abuse. HECTOR protocol was in place. It was 1 prior to discharge. * Thiamine, folate, and multivitamin were given. DISCHARGE INSTRUCTIONS: 1. Home. 2. Activity: As tolerated. 3. Diet: Consistent with carb. 4. Followup with cardiac rehab in [address] Landon in [address] Maldonado and PCP in 7 days. Job ID: [id number] [facility]
== END 2020-07-29 12:35 | disposition home or self-care (01) | DRG 225 ==
LOC: ERS 17:18 → 2NO 18:08
PROVIDERS: ADMIT Family Medicine; ATTEND Family Medicine
PROC: 4A023N7 Measurement of Cardiac Sampling and Pressure, Left Heart, Percutaneous Approach (ICD-10-PCS; 2020-07-25)
PROC: B2151ZZ Fluoroscopy of Left Heart using Low Osmolar Contrast (ICD-10-PCS; 2020-07-25)
PROC: B2111ZZ Fluoroscopy of Multiple Coronary Arteries using Low Osmolar Contrast (ICD-10-PCS; 2020-07-25)
PROC: 0JH608Z Insertion of Defibrillator Generator into Chest Subcutaneous Tissue and Fascia, Open Approach (ICD-10-PCS; principal; 2020-07-28)
PROC: 02HK3KZ Insertion of Defibrillator Lead into Right Ventricle, Percutaneous Approach (ICD-10-PCS; 2020-07-28)
PROC: 02H63KZ Insertion of Defibrillator Lead into Right Atrium, Percutaneous Approach (ICD-10-PCS; 2020-07-28)
DX: I47.2 Ventricular tachycardia (principal); I50.22 Chronic systolic (congestive) heart failure; I42.8 Other cardiomyopathies; Z20.822 Contact with and (suspected) exposure to COVID-19; E03.9 Hypothyroidism, unspecified; E78.5 Hyperlipidemia, unspecified; E78.00 Pure hypercholesterolemia, unspecified; E11.42 Type 2 diabetes mellitus with diabetic polyneuropathy; I48.0 Paroxysmal atrial fibrillation; I48.4 Atypical atrial flutter; F10.10 Alcohol abuse, uncomplicated; Z88.0 Allergy status to penicillin; Z79.899 Other long term (current) drug therapy; Z87.891 Personal history of nicotine dependence; Z79.4 Long term (current) use of insulin; Z79.890 Hormone replacement therapy
CPT/HCPCS: 0240U; 33249; 36005; 36415; 36416; 71045; 75820; 76942; 80048; 80053; 82607; 82747; 83036; 83735; 83880; 84100; 84443; 84484; 85025; 93005; 93010; 93458; 93798; 96365; 96366; 96376; 99152; C1721; C1777; C1898; J0282; J0690; J1100; J1580; J1644; J1650; J1956; J2250; J2405; J2704; J3010; J3370; J3475; J7070; Q9967